=== PATIENT | male | born 1960 | race Caucasian/White ===

== ENCOUNTER 2016-06-21 03:18 | Emergency (ER) | payer OTHER ==
[2016-06-21] MEDS ORDERED: PROCAINAMIDE HCL 1,000 MG in D5W 50 ML IV ONE (03:31)
[2016-06-21] MEDS ORDERED: NS 1,000 ML IV ONE (03:31)
--- NOTE | 2016-06-21 03:42 | CPEKG ---
Heart Rate: 124 RR Interval: 484 QRSD Interval: 76 QT Interval: 340 QTC Interval: 489 QRS [place]: 1 T Wave [place]: 19 EKG Severity - ABNORMAL ECG - EKG Impression: ATRIAL FIBRILLATION EKG Impression: MULTIFORM VENTRICULAR PREMATURE COMPLEXES EKG Impression: BORDERLINE PROLONGED QT INTERVAL Electronically Signed By: Charo Hollingsworth 21-Jun-2016 07:08:52
[2016-06-21 04:10] VITALS: PULSE 76
--- NOTE | 2016-06-21 04:15 | EDPHY ---
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 He felt he could not catch his breath after his encounter with the patient and then felt palpitations. He denies any chest pain. The palpitations have been constant, moderate in severity and not improving. These feels like his prior episodes of atrial fibrillation which seem to mostly be provoked with exertion exercise. REVIEW OF SYSTEMS Constitutional: No fever, no chills. Cardiovascular: No chest pain, + palpitations. Neurological: No headache. 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 PHYSICAL General Appearance: Alert, no distress Eyes: Pupils equal and round no pallor or injection ENT, Mouth: Mucous membranes moist Respiratory: There are no retractions, lungs are clear to auscultation Cardiovascular: Fast irregularly irregular Neurological: A&O, moves all extremities Skin: Warm and dry, no rashes Musculoskeletal: Neck is supple non tender Extremities: symmetrical, full range of motion Psychiatric: Patient is oriented X 3, there is no agitation Source: Patient Exam Limitations: No limitations - Personal History Current Tetanus/Diphtheria Vaccine: Yes Current Tetanus Diphtheria and Acellular Pertussis (TDAP): Yes - Medical/Surgical History Hx Asthma: Yes Hx Chronic Respiratory Disease: No Hx Diabetes: No Hx Cardiac Disease: Yes Hx Renal Disease: No Hx Cirrhosis: No Hx Alcoholism: No Hx HIV/AIDS: No Hx Splenectomy or Spleen Trauma: No Other PMH: afib, reactive airway - Social History Smoking Status: Former smoker Constitutional: Initial Vital Signs Heart Rate 141 H 06/21/16 03:20 Respiratory Rate 16 06/21/16 03:20 Blood Pressure 134/101 H 06/21/16 03:20 O2 Sat (%) 96 06/21/16 03:20 O2 Delivery Mode Room Air Allergies/Adverse Reactions: No Known Allergies Allergy (Verified 06/21/16 03:28) Home Medications: Medication Instructions Recorded Ibuprofen [Motrin (*)] 800 mg PO Q8 PRN 05/04/14 Albuterol [Proventil Inhaler HFA 1 - 2 puffs IH Q4H PRN #1 mdi 05/08/14 (*)] Montelukast Sodium [Singulair 10 10 mg PO DAILY@1800 #30 tab 05/08/14 mg (*)] Aspirin 81mg (*) PO 10/06/15 Multivitamin 12/26/15 Medical Decision Making - Diagnostics EKG Interpretation: EKG #1: Complete interpretation has been separately recorded in the [facility] archive. Summary impression: Atrial fibrillation with rapid ventricular response EKG #2: Complete interpretation has been separately recorded in the [facility] archive. Summary impression: Normal sinus rhythm ED Course/Re-evaluation: In the emergency room, the patient was given an IV fluid bolus of normal saline for volume depletion. He was given procainamide 1 g following the [place] protocol for atrial fibrillation. He cardioverted to a normal sinus rhythm with this. Repeat EKG is unremarkable. He will be discharged from the emergency room with follow-up with Cardiology. He has previously considered an ablation but is unsure if he would like to proceed. 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 On exam, he has atrial fibrillation and EKG reveals AFib with RVR. He does not have any chest pain, shortness of breath, any other concerning symptoms for [place], pulmonary embolism, electrolyte disturbance. - Data Points Medications Given: Discontinued Medications Sodium Chloride (Ns) 1,000 mls @ 0 mls/hr IV ONCE ONE PRN Reason: Wide Open Stop: 06/21/16 03:32 Last Admin: 06/21/16 04:00 Dose: 1,000 mls Procainamide HCl 1,000 mg/ (Dextrose) 60 mls @ 120 mls/hr IV ONCE ONE Stop: 06/21/16 04:00 Last Admin: 06/21/16 03:45 Dose: 60 mls Departure - Departure Disposition: Home, Routine, Self-Care Clinical Impression: Paroxysmal atrial fibrillation with rapid ventricular response Condition: Good Instructions: A-fib (Atrial Fibrillation) (ED) Additional Instructions: Please make sure to drink plenty of fluids and take it easy over the next 1 day. You can follow up with your heating engineer this week. Return for any concerning symptoms. Referrals: Maxwell Baxter PA [Primary Care Provider] - As per Instructions
--- NOTE | 2016-06-21 04:46 | CPEKG ---
Heart Rate: 81 RR Interval: 741 P-R Interval: 156 QRSD Interval: 82 QT Interval: 404 QTC Interval: 469 P [place]: 61 QRS [place]: -12 T Wave [place]: 45 EKG Severity - NORMAL ECG - EKG Impression: SINUS RHYTHM Electronically Signed By: Charo Hollingsworth 21-Jun-2016 07:08:42
[2016-06-21 04:55] VITALS: BP 135/90; RESP 18; O2SAT 96
== END 2016-06-21 04:58 | disposition home or self-care (01) ==
DX: I48.0 Paroxysmal atrial fibrillation (principal); I10 Essential (primary) hypertension; J45.909 Unspecified asthma, uncomplicated; Z79.82 Long term (current) use of aspirin; Z87.891 Personal history of nicotine dependence
CPT/HCPCS: 96365; J2690

== ENCOUNTER 2016-08-06 22:06 | Emergency (ER) | payer OTHER ==
[2016-08-06] MEDS ORDERED: NS 1,000 ML IV ONE (22:15)
[2016-08-06 22:37] LABS: % IMMATURE GRANULYOCYTES 0.4 % (0.0-1.1); ABSOLUTE IMMATURE GRANULOCYTES 0.05 10^3/uL (0.00-0.10); ADD DIFF? NO; ADD MORPH? NO; ADD SCAN? NO; ATYPICAL LYMPHOCYTE FLAG 10 (0-99); FRAGMENT RBC FLAG 0 (0-99); HEMATOCRIT 43.6 % (40.0-51.0); HEMOGLOBIN 15.8 g/dL (13.7-17.5); LEFT SHIFT FLG 0 (0-99); LIPEMIA HEMOLYSIS FLAG 90 (0-99); MEAN CELL HEMOGLOBIN 31.4 pg (27.9-34.1); MEAN CELL HEMOGLOBIN CONCENTR. 36.2 g/dL (32.4-36.7); MEAN CELL VOLUME 86.7 fL (81.5-99.8); PLATELET CLUMPS FLAG 0 (0-99); PLATELET COUNT 298 10^3/uL (150-400); RED BLOOD CELL COUNT 5.03 10^6/uL (4.40-6.38); RED CELL DISTRIBUTION WIDTH 12.3 % (11.5-15.2)
[2016-08-06 22:38] VITALS: RESP 14
[2016-08-06 22:49] LABS: ANION GAP 19 mEq/L (8-16); CALCIUM 10.2 mg/dL (8.5-10.4); CARBON DIOXIDE 21 mEq/l (22-31); CHLORIDE 100 mEq/L (97-110); CREATININE 1.1 mg/dL (0.7-1.3); GLOMERULAR FILTRATION RATE > 60; GLUCOSE 97 mg/dL (70-100); POTASSIUM 4.1 mEq/L (3.5-5.2); SODIUM 140 mEq/L (134-144)
--- NOTE | 2016-08-06 22:52 | EDPHY ---
H & P Time Seen by Provider: 08/06/16 22:32 HPI/ROS: CHIEF COMPLAINT: Possible atrial fibrillation HISTORY OF PRESENT ILLNESS: 55-year-old male with history of paroxysmal atrial fibrillation and hypertension presents reporting that he developed acute palpitations and irregular heart rate approximately 30 minutes ago. Patient has a history of atrial fibrillation which is been converted using procainamide. He takes an aspirin every day. He is not otherwise anticoagulated. Typically is in sinus rhythm. He does have a history of hypertension and was recently started on amlodipine about a month ago. He reports 2 episodes of what he describes as atrial fibrillation since starting the amlodipine. Patient was at a softball game prior to the development of atrial fibrillation. During the game he reports feeling well. No chest pain, palpitations, shortness of breath, vomiting, or diarrhea. REVIEW OF SYSTEMS: Aside from elements discussed in the HPI, a comprehensive 10-point review of systems was reviewed and is negative. PAST MEDICAL HISTORY: Atrial fibrillation, hypertension. No known history of coronary artery disease or stents. SOCIAL HISTORY: Works at [employer]. Nonsmoker. VITAL SIGNS Reviewed by me. Heart rate 87 on the monitor. GENERAL: Well-developed, well-nourished, resting comfortably in no respiratory distress. HEENT: Atraumatic. Eyes: No icterus, no injection. Mouth: moist mucous membranes. No erythema or lesions. Neck: supple with no adenopathy. LUNGS: Clear to auscultation bilaterally, no wheezes, rhonchi or rales. CARDIAC: Regular with an occasional premature beat. ABDOMEN: Soft, nontender, nondistended, bowel sounds normal. BACK: No CVA tenderness. EXTREMITIES: No trauma. No edema. Range of motion is normal throughout. NEURO: Alert and oriented, grossly nonfocal. SKIN: Warm and slightly diaphoretic, no rash. PSYCHIATRIC: Normal mentation, no agitation. Smoking Status: Former smoker Constitutional: Initial Vital Signs Heart Rate 92 08/06/16 22:35 Respiratory Rate 14 08/06/16 22:35 Blood Pressure 127/88 H 08/06/16 22:35 O2 Sat (%) 97 08/06/16 22:35 O2 Delivery Mode Room Air Allergies/Adverse Reactions: No Known Allergies Allergy (Verified 08/06/16 22:33) Home Medications: Medication Instructions Recorded Albuterol [Proventil Inhaler HFA 1 - 2 puffs IH Q4H PRN #1 mdi 05/08/14 (*)] Montelukast Sodium [Singulair 10 10 mg PO DAILY@1800 #30 tab 05/08/14 mg (*)] Aspirin 81mg (*) PO 10/06/15 Multivitamin 12/26/15 Medical Decision Making - Diagnostics EKG Interpretation: 12-LEAD EKG: Please see the full report in [facility]. My interpretation: Sinus rhythm, multiple premature atrial complexes. ED Course/Re-evaluation: 55-year-old male with history of atrial fibrillation presents reporting that he felt palpitations and rapid heart rate earlier. 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 EKG in the emergency department demonstrates sinus rhythm with multiple PACs. Patient had a L of normal saline as well as CBC and chemistries checked. These were largely unremarkable. Patient has appointment with Dr. Cortez to follow up regarding recurrent episodes of atrial fibrillation. He is anxious to be discharged and feels well. Please see the discharge instructions. Differential Diagnosis: Differential diagnoses for the patient's sensation of palpitations was considered including but not limited to sinus tachycardia, PACs, PVCs, SVT, atrial fibrillation, atrial flutter, anxiety, panic attack. - Data Points Laboratory Results: Laboratory Results 08/06/16 22:25 08/06/16 22:25 08/06/16 08/06/16 22:25 22:25 WBC 11.45 10^3/uL H 10^3/uL (3.80-9.50) RBC 5.03 10^6/uL 10^6/uL (4.40-6.38) Hgb 15.8 g/dL g/dL (13.7-17.5) Hct 43.6 % % (40.0-51.0) MCV 86.7 fL fL (81.5-99.8) MCH 31.4 pg pg (27.9-34.1) MCHC 36.2 g/dL g/dL (32.4-36.7) RDW 12.3 % % (11.5-15.2) Plt Count 298 10^3/uL 10^3/uL (150-400) MPV 9.0 fL fL (8.7-11.7) Neut % (Auto) 62.5 % % (39.3-74.2) Lymph % (Auto) 29.0 % % (15.0-45.0) [place] % (Auto) 7.2 % % (4.5-13.0) Eos % (Auto) 0.5 % L % (0.6-7.6) Baso % (Auto) 0.4 % % (0.3-1.7) Nucleat RBC Rel Count 0.0 % % (0.0-0.2) Absolute Neuts (auto) 7.14 10^3/uL H 10^3/uL (1.70-6.50) Absolute Lymphs (auto) 3.32 10^3/uL H 10^3/uL (1.00-3.00) Absolute Monos (auto) 0.83 10^3/uL H 10^3/uL (0.30-0.80) Absolute Eos (auto) 0.06 10^3/uL 10^3/uL (0.03-0.40) Absolute Basos (auto) 0.05 10^3/uL 10^3/uL (0.02-0.10) Absolute Nucleated RBC 0.00 10^3/uL 10^3/uL (0-0.01) Immature Gran % 0.4 % % (0.0-1.1) Immature Gran # 0.05 10^3/uL 10^3/uL (0.00-0.10) Sodium 140 mEq/L mEq/L (134-144) Potassium 4.1 mEq/L mEq/L (3.5-5.2) Chloride 100 mEq/L mEq/L (97-110) Carbon Dioxide 21 mEq/l L mEq/l (22-31) Anion Gap 19 mEq/L H mEq/L (8-16) BUN 18 mg/dL mg/dL (7-23) Creatinine 1.1 mg/dL mg/dL (0.7-1.3) Estimated GFR > 60 Glucose 97 mg/dL mg/dL (70-100) Calcium 10.2 mg/dL mg/dL (8.5-10.4) Departure - Departure Disposition: Home, Routine, Self-Care Clinical Impression: Palpitations Condition: Good Instructions: Palpitations (ED) Additional Instructions: Please follow up with Dr. Cortez. Drink plenty of fluids and get plenty of rest. Avoid dehydration, overheating, or significant exertion. Return to the emergency department or follow up as needed if your symptoms of palpitations recur. Referrals: NONE *PRIMARY CARE P,. [Primary Care Provider] - As per Instructions Christopher Cortez MD [Medical Doctor] - As per Instructions (Follow-up as scheduled. )
--- NOTE | 2016-08-06 23:44 | CPEKG ---
Heart Rate: 87 RR Interval: 690 P-R Interval: 152 QRSD Interval: 82 QT Interval: 352 QTC Interval: 424 P [place]: 59 QRS [place]: -4 T Wave [place]: 34 EKG Severity - ABNORMAL ECG - EKG Impression: SINUS RHYTHM EKG Impression: MULTIPLE ATRIAL PREMATURE COMPLEXES EKG Impression: PROBABLE LEFT ATRIAL ABNORMALITY Electronically Signed By: Paz Platt 06-Aug-2016 23:44:23
[2016-08-07 00:41] VITALS: BP 119/77; PULSE 76; O2SAT 96
== END 2016-08-06 23:32 | disposition home or self-care (01) ==
LOC: CED 22:06
DX: R00.2 Palpitations (principal); I10 Essential (primary) hypertension; Z79.82 Long term (current) use of aspirin; Z87.891 Personal history of nicotine dependence
CPT/HCPCS: 80048-PO; 85025-PO

== ENCOUNTER 2016-10-16 05:32 | Observation (INO) | payer OTHER ==
--- NOTE | 2016-10-16 05:37 | CPEKG ---
Heart Rate: 83 RR Interval: 723 P-R Interval: 196 QRSD Interval: 88 QT Interval: 364 QTC Interval: 428 P [place]: 73 QRS [place]: 4 T Wave [place]: 53 EKG Severity - ABNORMAL ECG - EKG Impression: SINUS RHYTHM EKG Impression: ABERRANT COMPLEX, POSSIBLY SUPRAVENTRICULAR Electronically Signed By: Charo Hollingsworth 16-Oct-2016 06:25:33
[2016-10-16] MEDS ORDERED: NS 1,000 ML IV ONE (05:41)
--- NOTE | 2016-10-16 05:57 | EDPHY ---
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 These feels like a fluttering in his chest and are worse upon exertion, improved at rest. He felt them come on at about 1:00 a.m. 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 When he rests, his symptoms improved, however when he walks around the become worse. He was recently evaluated by Dr. Cobb and has started on propafenone 225 mg twice daily and diltiazem, dose unknown. He has felt better since starting these medications until the last 2 days. REVIEW OF SYSTEMS Constitutional: No fever, no chills. Eyes: No discharge. ENT: No sore throat. Cardiovascular: No chest pain, no palpitations. Respiratory: No cough, no shortness of breath. Gastrointestinal: No abdominal pain, no vomiting. Genitourinary: No hematuria. Musculoskeletal: No back pain. Skin: No rashes. Neurological: No headache. PMHx: Paroxysmal atrial fibrillation Soc Hx: Works at [employer] PHYSICAL General Appearance: Alert, no distress Eyes: Pupils equal and round no pallor or injection ENT, Mouth: Mucous membranes moist Respiratory: There are no retractions, lungs are clear to auscultation Cardiovascular: Regular rate and rhythm Gastrointestinal: Abdomen is soft and non-tender, no masses, bowel sounds normal Neurological: A&O, moves all extremities Skin: Warm and dry, no rashes Musculoskeletal: Neck is supple non tender Extremities: symmetrical, full range of motion Psychiatric: Patient is oriented X 3, there is no agitation Source: Patient Exam Limitations: No limitations - Personal History Current Tetanus/Diphtheria Vaccine: Yes Current Tetanus Diphtheria and Acellular Pertussis (TDAP): Yes - Medical/Surgical History Hx Asthma: Yes Hx Chronic Respiratory Disease: No Hx Diabetes: No Hx Cardiac Disease: Yes Hx Renal Disease: No Hx Cirrhosis: No Hx Alcoholism: No Hx HIV/AIDS: No Hx Splenectomy or Spleen Trauma: No Other PMH: afib, reactive airway - Social History Smoking Status: Former smoker Constitutional: Initial Vital Signs Temperature (C) 36.7 C 10/16/16 05:37 Heart Rate 141 H 10/16/16 05:37 Respiratory Rate 16 10/16/16 05:37 Blood Pressure 148/91 H 10/16/16 05:37 O2 Sat (%) 94 10/16/16 05:37 O2 Delivery Mode Room Air Allergies/Adverse Reactions: No Known Allergies Allergy (Verified 10/16/16 05:35) Home Medications: Medication Instructions Recorded Albuterol [Proventil Inhaler HFA 1 - 2 puffs IH Q4H PRN #1 mdi 05/08/14 (*)] Montelukast Sodium [Singulair 10 10 mg PO DAILY@1800 #30 tab 05/08/14 mg (*)] Aspirin 81mg (*) PO 10/06/15 Multivitamin 12/26/15 Rythmol Sr 10/16/16 Medical Decision Making - Diagnostics EKG Interpretation: EKG: Complete interpretation has been separately recorded in the [email or web address] archive. Summary impression: Sinus rhythm with PVCs Differential Diagnosis: This is a 48-year-old man with paroxysmal atrial fibrillation, reactive airways disease who presents with palpitations which have been intermittent over the last 2 days, worse upon exertion. He was recently evaluated by Dr. Cobb of Cardiology and has started on propafenone and diltiazem. He has been feeling well up until the last 2 days. Differential diagnosis includes paroxysmal atrial fibrillation, other arrhythmia such as SVT, electrolyte disturbance, ACS. In the emergency department, the patient was placed on a personnel monitor, initial heart rate was in the 140s, however improved to the 70s without any intervention. EKG was obtained which demonstrated multiple premature ventricular and supraventricular complexes. Basic labs were all unremarkable. I consulted with the director plans system consultant Dr. Cotter. He recommends treadmill stress testing to further evaluate the patient's rhythm. I plan to admit the patient for observation for this test. I have ordered him a hospital bed. - Data Points Laboratory Results: Laboratory Results 10/16/16 05:34 10/16/16 05:34 10/16/16 10/16/16 05:34 05:34 WBC 10.88 10^3/uL H 10^3/uL (3.80-9.50) RBC 3.72 10^6/uL L 10^6/uL (4.40-6.38) Hgb 12.1 g/dL L g/dL (13.7-17.5) Hct 35.3 % L % (40.0-51.0) MCV 94.9 fL fL (81.5-99.8) MCH 32.5 pg pg (27.9-34.1) MCHC 34.3 g/dL g/dL (32.4-36.7) RDW 15.5 % H % (11.5-15.2) Plt Count 291 10^3/uL 10^3/uL (150-400) MPV 9.3 fL fL (8.7-11.7) Neut % (Auto) 41.4 % % (39.3-74.2) Lymph % (Auto) 43.8 % % (15.0-45.0) [place] % (Auto) 9.0 % % (4.5-13.0) Eos % (Auto) 4.4 % % (0.6-7.6) Baso % (Auto) 0.9 % % (0.3-1.7) Nucleat RBC Rel Count 0.0 % % (0.0-0.2) Absolute Neuts (auto) 4.50 10^3/uL 10^3/uL (1.70-6.50) Absolute Lymphs (auto) 4.77 10^3/uL H 10^3/uL (1.00-3.00) Absolute Monos (auto) 0.98 10^3/uL H 10^3/uL (0.30-0.80) Absolute Eos (auto) 0.48 10^3/uL H 10^3/uL (0.03-0.40) Absolute Basos (auto) 0.10 10^3/uL 10^3/uL (0.02-0.10) Absolute Nucleated RBC 0.00 10^3/uL 10^3/uL (0-0.01) Immature Gran % 0.5 % % (0.0-1.1) Immature Gran # 0.05 10^3/uL 10^3/uL (0.00-0.10) Sodium 143 mEq/L mEq/L (134-144) Potassium 3.9 mEq/L mEq/L (3.5-5.2) Chloride 109 mEq/L mEq/L (97-110) Carbon Dioxide 20 mEq/l L mEq/l (22-31) Anion Gap 14 mEq/L mEq/L (8-16) BUN 21 mg/dL mg/dL (7-23) Creatinine 1.3 mg/dL mg/dL (0.7-1.3) Estimated GFR 57 Glucose 99 mg/dL mg/dL (70-100) Calcium 9.1 mg/dL mg/dL (8.5-10.4) Troponin I Pending Medications Given: Discontinued Medications Sodium Chloride (Ns) 1,000 mls @ 0 mls/hr IV EDNOW ONE; Wide Open PRN Reason: Protocol Stop: 10/16/16 05:42 Last Admin: 10/16/16 05:56 Dose: 1,000 mls Departure - Departure Disposition: [facility] Inpatient Acute Clinical Impression: Atrial fibrillation Qualifiers: Atrial fibrillation type: paroxysmal Qualified Code(s): I48.0 - Paroxysmal atrial fibrillation Condition: Fair
[2016-10-16 06:06] LABS: % IMMATURE GRANULYOCYTES 0.5 % (0.0-1.1); ABSOLUTE IMMATURE GRANULOCYTES 0.05 10^3/uL (0.00-0.10); ADD DIFF? NO; ADD MORPH? NO; ADD SCAN? NO; ATYPICAL LYMPHOCYTE FLAG 10 (0-99); FRAGMENT RBC FLAG 0 (0-99); HEMATOCRIT 35.3 % (40.0-51.0); HEMOGLOBIN 12.1 g/dL (13.7-17.5); LEFT SHIFT FLG 0 (0-99); LIPEMIA HEMOLYSIS FLAG 90 (0-99); MEAN CELL HEMOGLOBIN 32.5 pg (27.9-34.1); MEAN CELL HEMOGLOBIN CONCENTR. 34.3 g/dL (32.4-36.7); MEAN CELL VOLUME 94.9 fL (81.5-99.8); MEAN PLATELET VOLUME 9.3 fL (8.7-11.7); PLATELET CLUMPS FLAG 0 (0-99); PLATELET COUNT 291 10^3/uL (150-400); RED BLOOD CELL COUNT 3.72 10^6/uL (4.40-6.38); RED CELL DISTRIBUTION WIDTH 15.5 % (11.5-15.2)
[2016-10-16 06:12] LABS: ANION GAP 14 mEq/L (8-16); CALCIUM 9.1 mg/dL (8.5-10.4); CARBON DIOXIDE 20 mEq/l (22-31); CHLORIDE 109 mEq/L (97-110); CREATININE 1.3 mg/dL (0.7-1.3); GLOMERULAR FILTRATION RATE 57; GLUCOSE 99 mg/dL (70-100); POTASSIUM 3.9 mEq/L (3.5-5.2); SODIUM 143 mEq/L (134-144)
[2016-10-16 06:24] LABS: TROPONIN I 0.022 ng/mL (0.000-0.034)
[2016-10-16 06:43] VITALS: RESP 18; O2SAT 92
[2016-10-16 06:58] VITALS: BP 158/98; PULSE 91; TEMP 97.8
--- NOTE | 2016-10-16 10:49 | SOAPPROG ---
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 Paroxysmal afib early this am that converted to NSR prior to arrival to ED. He has maintained NSR. He is currently on Rythmol 225 mg bid along with diltiazem for rhythm control. 2. Mildly abnormal ETT. 3. Isolated PACs and PVCs. 4. HTN, suboptimally controlled. Plan: D/w Drs. Moseley and Vahe 1. Increase Rythmol to 325 mg po bid. In the interim the patient will take 225 mg tid until he is able to attain his Rx. 2. Continue current doses of diltiazem and aspirin. 3. 12 lead EKG early next week to check QTc. 4. Follow up with Dr. Cobb at soonest convenience to discuss ablation therapy. 10/16/16 10:45 Objective: Vital Signs Temp Pulse Resp BP Pulse Ox 36.6 C 91 18 158/98 H 92 10/16/16 06:55 10/16/16 06:55 10/16/16 06:55 10/16/16 06:55 10/16/16 06:55 10/15/16 10/16/16 10/17/16 05:59 05:59 05:59 Intake Total 1000 Balance 1000 Physical Exam - Physical Exam General Appearance: WD/WN, alert, no apparent distress Respiratory: chest non-tender, lungs clear, normal breath sounds Cardiac/Chest: normal peripheral pulses, regular rate, rhythm Neuro/Psych: no motor/sensory deficits, alert, normal mood/affect, oriented x 3 ICD10 Worksheet Patient Problems: Problems Problem Status Onset Hypoxia Acute Atrial fibrillation Acute
--- NOTE | 2016-10-16 10:56 | CPR ---
[f rep st] NONINVASIVE CARDIAC PROCEDURE REPORT DATE OF PROCEDURE: 10/16/2016 PROCEDURE: Regular exercise stress test. INDICATION FOR PROCEDURE: A 56-year-old male, with history of atrial fibrillation who presented to the emergency department early this morning with subjective account of stuttering bouts of recurrent atrial fibrillation. He is normally followed by Dr. Calderon Cobb and was recently placed on propafenone 225 mg twice daily along with diltiazem for control of his arrhythmia. He presented to the hospital this morning in normal sinus rhythm. Treadmill testing was ordered by Dr. Cotter for further evaluation. DESCRIPTION OF PROCEDURE: Baseline heart rate, blood pressure, and 12-lead EKG were performed in the supine position. The patient underwent 9 minutes of standard Denny protocol with intermittent blood pressure monitoring every 2 minutes and continuous EKG and pulse oximetry. He was observed for 5 minutes in recovery. FINDINGS: Baseline heart rate is 62 beats per minute. Baseline blood pressure 134/82 mmHg. Baseline EKG shows normal sinus rhythm at 62 beats per minute with a single premature atrial contraction. Corrected QT interval is 426 milliseconds. Blood pressure and heart rate increased linearly with increasing stages of exercise. There were occasional premature atrial contractions. Peak heart rate was 144 beats per minute meeting 89% of age predicted maximum heart rate. Peak blood pressure was 180/80 mmHg. Patient denied any chest discomfort on the treadmill. There was no recurrent atrial fibrillation. There was approximately [address]-segment depression in V5 and V6 at peak exercise that resolved by 4 minutes of recovery. Following cessation of the test, heart rate and blood pressure decreased in a linear fashion and were 87 beats per minute and 150/90 mmHg respectively at the end of the test. IMPRESSION: 1. Mildly abnormal stress test. 2. Paroxysmal atrial fibrillation. 3. Hypertension. PLAN: (Discussed with Doctors Frederick Moseley and Petey Cotter). 1. Increase propafenone to 325 mg twice daily. 2. Continue current doses of diltiazem and aspirin. 3. Okay to discharge home. Arrange for 12-lead EKG early this upcoming week for check of corrected QT interval. He will also need follow up with Dr. Calderon Cobb to further discuss ablation therapy. /[id number]/[id number] MTDD
[2016-10-16] MEDS ORDERED: PROPAFENONE HCL SR 325 MG CAP PO SCH (11:15)
--- NOTE | 2016-10-16 11:41 | GCON ---
[f rep st] CONSULTATION CARDIAC CONSULTATION DATE OF CONSULTATION: 10/16/2016 CHIEF COMPLAINT: Atrial fibrillation. HISTORY OF PRESENT ILLNESS: The patient is a 54-etqg-uil gentleman who has had a 5-6 year history of paroxysmal atrial fibrillation requiring DC cardioversion and chemical cardioversions. He was seen on 09/[address] Cobb to discuss management. He apparently has been started on rhythm con trol with propafenone SR 225 mg p.o. twice daily. His blood pressure, which he is now on chlorthali done and irbesartan and he also takes 180 mg of Cardizem. 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 This was new. Apparently t he medications have been working for about a week. He came to the emergency room where he was in at [facility]. We converted. Overnight he has had 1 short bout of atrial fibrillation. He is a CHAD1 on aspirin. He is feeling well at this time. He was to have an exercise stress test which will be scheduled for this morning. I discussed with him our options at this point. If his stress test appears to be normal, I will probably increase his Rythmol from 225 mg twice daily to 325 mg p. o. twice daily, and he can follow up in our office with an EKG on Tuesday or Tuesday of next week. H is QT is 407 at this time. He is having no side affects. He denies syncope. He denies any ACS sym ptomatology. PAST HISTORY: Significant for hypertension and other orthopedic issues. MEDICATIONS: Include chlorthalidone 25 mg a day, irbesartan 300 mg daily, Cardizem 180 mg p.o. apryl y. He is on Advair Diskus and rescue inhalers. ALLERGIES: No known allergies. FAMILY HISTORY: Noncontributory. SOCIAL HISTORY: Was a former smoker. REVIEW OF SYSTEMS: Negative in a 10-point system other than what was mentioned in the HPI. PHYSICAL EXAMINATION: VITAL SIGNS: Blood pressure is 150/98. HEENT: Mouth, oropharynx was moist. BACK: CVA and chest wall without palpable tenderness. SKIN: Clear. LUNGS: Clear to auscultati on. CARDIOVASCULAR: Regular rate and rhythm without murmur, gallop, rub. ABDOMEN: Soft, nontende r. MUSCULOSKELETAL: Showed no sinus clubbing or edema. Pulses are 2+ and symmetrical. LABORATORY DATA: White count 10, hemoglobin 12, potassium 3.9, troponin negative. EKG normal sinus rhythm with PACs. No ischemic changes. QT was 364. ASSESSMENT: 1. Paroxysmal atrial fibrillation with breakthrough on recent medicines. He had no syncope. This is a chronic situation and is being followed by Dr. Cobb. At this point, will perform an exercise st ress test. Afterward if this appears to be normal and there are no exercise induced issues, we will increase his Rythmol 325 mg p.o. twice daily and discharge home on all his other current medication s. Patient will follow in our office with an EKG, and conversation with Dr. Cobb next week to discus s further options. He is not having prolonged atrial fibrillation, at least last night was short-li pat and self terminated. 2. Hypertension. Patient will continue on antihypertensive medications as needed. 3. Former history of smoking. 4. History of GI bleed but no active GI bleed at this time. 5. Patient had questions answered. Further care depending on his clinical course. /[id number]/MODL
== END 2016-10-16 12:25 | disposition home or self-care (01) ==
LOC: F2W 06:48
PROVIDERS: ADMIT Internal Medicine Interventional Cardiology; ATTEND Internal Medicine Interventional Cardiology
DX: I48.0 Paroxysmal atrial fibrillation (principal); I10 Essential (primary) hypertension
CPT/HCPCS: 93005; 93017; G0378

== ENCOUNTER 2016-11-04 15:52 | Emergency (ER) | payer OTHER ==
[2016-11-04 15:57] VITALS: RESP 20; TEMP 97.9
--- NOTE | 2016-11-04 16:35 | CPEKG ---
Heart Rate: 74 RR Interval: 811 P-R Interval: 144 QRSD Interval: 76 QT Interval: 364 QTC Interval: 404 P [place]: 54 QRS [place]: -5 T Wave [place]: 19 EKG Severity - BORDERLINE ECG - EKG Impression: SINUS RHYTHM EKG Impression: PROBABLE LEFT ATRIAL ABNORMALITY Electronically Signed By: Tayo Soria 04-Nov-2016 16:38:31
--- NOTE | 2016-11-04 16:37 | EDPHY ---
H & P Stated Complaint: Dizziness, heart arrythmia. Started at 1pm. 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 He has a history of atrial fibrillation. He is on diltiazem daily. He complains today of significant lightheadedness associated with only minimal exertion. Even lifting his laundry basket or holding his breath for about 5 seconds. He has paroxysmal tachycardia up to the 150s but states that this is not unusual for him. His heart rate is currently at 80 any states that this is high for him. He is not on anticoagulants. No headache. No vertigo. No chest pain. No shortness of breath. No leg swelling. REVIEW OF SYSTEMS: Constitutional: denies: chills, fever, recent illness, recent injury EENTM: denies: blurred vision, double vision, nose congestion Respiratory: denies: cough, shortness of breath Cardiac: See HPI Gastrointestinal/Abdominal: denies: abdominal pain, diarrhea, nausea, vomiting, blood streaked stools Genitourinary: denies: dysuria, frequency, hematuria, pain Musculoskeletal: denies: joint pain, muscle pain Skin: denies: lesions, rash, jaundice, bruising Neurological: denies: headache, numbness, paresthesia, tingling, dizziness, weakness Hematologic/Lymphatic: denies: blood clots, easy bleeding, easy bruising Immunologic/allergic: denies: HIV/AIDS, transplant EXAM: GENERAL: Well-appearing, well-nourished and in no acute distress. HEAD: Atraumatic, normocephalic. EYES: No nystagmus, Pupils equal round and reactive to light, extraocular movements intact, sclera anicteric, conjunctiva are normal. ENT: TMs normal, nares patent, oropharynx clear without exudates. Moist mucous membranes. NECK: Normal range of motion, supple without lymphadenopathy or JVD. LUNGS: Breath sounds clear to auscultation bilaterally and equal. No wheezes rales or rhonchi. HEART: Regular rate and rhythm without murmurs, rubs or gallops. ABDOMEN: Soft, nontender, normoactive bowel sounds. No guarding, no rebound. No masses appreciated. BACK: No CVA tenderness, no spinal tenderness, step-offs or deformities EXTREMITIES: Normal range of motion, no pitting or edema. No clubbing or cyanosis. NEUROLOGICAL: Cranial nerves II through XII grossly intact. Normal speech, normal gait. 5/5 strength, normal movement in all extremities, normal sensation , normal cerebellar exam PSYCH: Normal mood, normal affect. SKIN: Warm, dry, normal turgor, no visible rashes or lesions. Source: Patient Exam Limitations: Clinical condition - Personal History Current Tetanus Diphtheria and Acellular Pertussis (TDAP): Yes - Medical/Surgical History Hx Asthma: Yes Hx Chronic Respiratory Disease: No Hx Diabetes: No Hx Cardiac Disease: Yes Hx Renal Disease: No Hx Cirrhosis: No Hx Alcoholism: No Hx HIV/AIDS: No Hx Splenectomy or Spleen Trauma: No Other PMH: afib, reactive airway, 3 knee surgeries - Family History Significant Family History: No pertinent family hx - Social History Smoking Status: Former smoker Alcohol Use: Sober Drug Use: None Constitutional: Initial Vital Signs Temperature (C) 36.6 C 11/04/16 15:54 Heart Rate 90 11/04/16 15:54 Respiratory Rate 20 11/04/16 15:54 Blood Pressure 132/89 H 11/04/16 15:54 O2 Sat (%) 93 11/04/16 15:54 O2 Delivery Mode Room Air Allergies/Adverse Reactions: No Known Allergies Allergy (Verified 10/16/16 05:35) Home Medications: Medication Instructions Recorded Albuterol Sulfate [Proair Hfa] 1 - 2 puffs IH Q4-6PRN PRN 10/16/16 Aspirin [Aspirin 325 mg (*)] 325 mg PO DAILY 10/16/16 Diltiazem Cd [Cardizem ER Q24hr] 180 mg PO DAILY 10/16/16 Fluticasone/Salmeter 250/50Mcg 1 puffs IH BID PRN 10/16/16 [Advair 250/50 (*)] Montelukast Sodium [Singulair 10 10 mg PO DAILY@1800 10/16/16 mg (*)] Multivitamins [Multivitamin (*)] 1 each PO DAILY 10/16/16 Triazolam [Halcion 0.25MG (*)] 0.25 mg PO HS PRN 10/16/16 Medical Decision Making - Diagnostics EKG Interpretation: An EKG obtained and was read and documented in trace view. Please see trace view for full reading and report. Sinus rhythm, no acute ischemic changes ED Course/Re-evaluation: 5:30 p.m. the patient is asymptomatic. We discussed his lab results which are reassuring. His orthostatic vital signs were normal. He has not been symptomatic since arriving. He wishes to go home. I did offer admission for carotid studies and monitoring. He declines and will arrange this as an outpatient. He was road tested and was asymptomatic. Differential Diagnosis: Partial list of the Differential diagnosis considered include but were not limited to; lightheadedness, arrhythmia and although unlikely based on the history and physical exam, I also considered acute coronary disease, PE, hypotension, dehydration. I discussed these differential diagnoses and the plan with the patient as well as the usual and expected course. The patient understands that the diagnosis is provisional and that in medicine we are not always correct and that further workup is often warranted. Usual and customary warnings were given. All of the patient's questions were answered. The patient was instructed to return to the emergency department should the symptoms at all worsen or return, otherwise to followup with the physician as we discussed. - Data Points Laboratory Results: Laboratory Results 11/04/16 16:34 11/04/16 16:34 Departure - Departure Disposition: Home, Routine, Self-Care Clinical Impression: Pre-syncope Condition: Fair Instructions: Near Syncope (ED) Referrals: [facility] [Other] - 1-2 days without fail
[2016-11-04 16:44] VITALS: PULSE 72
[2016-11-04 16:51] LABS: % IMMATURE GRANULYOCYTES 0.3 % (0.0-1.1); ABSOLUTE IMMATURE GRANULOCYTES 0.02 10^3/uL (0.00-0.10); ADD DIFF? NO; ADD MORPH? NO; ADD SCAN? NO; ATYPICAL LYMPHOCYTE FLAG 10 (0-99); FRAGMENT RBC FLAG 0 (0-99); HEMATOCRIT 42.2 % (40.0-51.0); HEMOGLOBIN 14.5 g/dL (13.7-17.5); LEFT SHIFT FLG 0 (0-99); LIPEMIA HEMOLYSIS FLAG 90 (0-99); MEAN CELL HEMOGLOBIN 31.7 pg (27.9-34.1); MEAN CELL HEMOGLOBIN CONCENTR. 34.4 g/dL (32.4-36.7); MEAN CELL VOLUME 92.3 fL (81.5-99.8); PLATELET CLUMPS FLAG 10 (0-99); PLATELET COUNT 262 10^3/uL (150-400); RED BLOOD CELL COUNT 4.57 10^6/uL (4.40-6.38); RED CELL DISTRIBUTION WIDTH 12.6 % (11.5-15.2)
[2016-11-04 17:05] LABS: INR 1.11 (0.83-1.16); PROTIME(PATIENT) 14.2 SEC (12.0-15.0)
[2016-11-04 17:06] LABS: ANION GAP 14 mEq/L (8-16); APTT 28.6 SEC (23.0-38.0); CARBON DIOXIDE 21 mEq/l (22-31); CHLORIDE 103 mEq/L (97-110); CREATININE 1.1 mg/dL (0.7-1.3); GLOMERULAR FILTRATION RATE > 60; GLUCOSE 91 mg/dL (70-100); SODIUM 138 mEq/L (134-144)
[2016-11-04 17:17] LABS: TROPONIN I < 0.012 ng/mL (0.000-0.034)
[2016-11-04 17:45] VITALS: BP 131/80; O2SAT 95
== END 2016-11-04 17:45 | disposition home or self-care (01) ==
DX: R55 Syncope and collapse (principal); J45.909 Unspecified asthma, uncomplicated; Z79.82 Long term (current) use of aspirin; Z87.891 Personal history of nicotine dependence

== ENCOUNTER → 2016-12-19 | Outpatient (CLI) | payer OTHER ==
[~2016-12-19] MED LIST: IOPAMIDOL (ISOVUE 370) 100 ML BTL IV ONE
== END ==
LOC: FIMAGING 22:43
PROVIDERS: ATTEND Internal Medicine Cardiovascular Disease
DX: I48.91 Unspecified atrial fibrillation (principal)
CPT/HCPCS: Q9967

== ENCOUNTER 2016-12-28 10:41 | Day surgery (SDC) | payer OTHER ==
[2016-12-28] MEDS ORDERED: NS 1,000 ML IV ONE (10:45)
--- NOTE | 2016-12-28 11:05 | CPEKG ---
Heart Rate: 65 RR Interval: 923 P-R Interval: 152 QRSD Interval: 80 QT Interval: 412 QTC Interval: 429 P [place]: 56 QRS [place]: 6 T Wave [place]: 21 EKG Severity - NORMAL ECG - EKG Impression: SINUS RHYTHM Electronically Signed By: Jorge Medrano 28-Dec-2016 15:40:29
[2016-12-28 11:23] LABS: PLATELET COUNT 231 10^3/uL (150-400)
[2016-12-28] MEDS ORDERED: MIDAZOLAM 2 MG/2 ML VIAL IVP ONE (11:35)
--- NOTE | 2016-12-28 11:35 | PDANEPAE ---
ANE History of Present Illness ep ANE Past Medical History - Cardiovascular History Hx Hypertension: No Hx Arrhythmias: Yes Hx Chest Pain: No Hx Coronary Artery / Peripheral Vascular Disease: No Hx CHF / Valvular Disease: No Hx Palpitations: No Cardiovascular History Comment: ATRIAL FIB - CARDIOVERSION X 2 LAST 2010 NO EPISODES SINCE - Pulmonary History Hx COPD: No Hx Asthma/Reactive Airway Disease: Yes Hx Recent Upper Respiratory Infection: No Hx Oxygen in Use at Home: No Hx Sleep Apnea: No Pulmonary History Comment: EXERCISE INDUCED AND ENVIRONMENTAL. PNEUMONIA 04/2014 - Neurologic History Hx Cerebrovascular Accident: No Hx Seizures: No Hx Dementia: No - Endocrine History Hx Diabetes: No - Renal History Hx Renal Disorders: No - Liver History Hx Hepatic Disorders: No - Neurological & Psychiatric Hx Hx Neurological and Psychiatric Disorders: No - Cancer History Hx Cancer: No - Congenital Disorder History Hx Congenital Disorders: No - GI History Hx Gastrointestinal Disorders: No - Other Health History Other Health History: INSOMNIA. ALLERGIC RHINITIS - Chronic Pain History Chronic Pain: Yes (LT KNEE) - Surgical History Prior Surgeries: RT KNEE SCOPE 12/2014. L KNEE SCOPE. TONSILLECTOMY ANE Review of Systems Review of Systems: - Exercise capacity METS (RN): 4 METS ANE Patient History - Allergies Allergies/Adverse Reactions: No Known Allergies Allergy (Verified 10/16/16 05:35) - Home Medications Home Medications: Albuterol Sulfate [Proair Hfa] 1 - 2 puffs IH Q4-6PRN PRN 10/16/16 [Last Taken Unknown] Diltiazem Cd [Cardizem ER Q24hr] 180 mg PO DAILY 10/16/16 [Last Taken 10/15/16] Fluticasone/Salmeter 250/50Mcg [Advair 250/50 (*)] 1 puffs IH BID PRN 10/16/16 [ Last Taken Unknown] Montelukast Sodium [Singulair 10 mg (*)] 10 mg PO DAILY@1800 10/16/16 [Last Taken 10/15/16] Multivitamins [Multivitamin (*)] 1 each PO DAILY 10/16/16 [Last Taken 10/15/16] Triazolam [Halcion 0.25MG (*)] 0.25 mg PO HS PRN 10/16/16 [Last Taken 10/15/16] Apixaban [Eliquis] 5 mg PO BID 12/21/16 [Last Taken Unknown] Chlorthalidone [Chlorthalidone 25 mg (*)] 25 mg PO DAILY 12/21/16 [Last Taken Unknown] Irbesartan [Avapro] 300 mg PO DAILY 12/21/16 [Last Taken Unknown] Omeprazole [Prilosec 20 mg] 20 mg PO BID 12/21/16 [Last Taken Unknown] - Anes Hx Anes Hx: no prior problems - Smoking Hx Smoking Status: Former smoker - Family Anes Hx Family Hx Anesthesia Complications: NEG ANE Labs/Vital Signs - Labs Result Diagrams: 12/28/16 11:15 12/28/16 11:15 - Vital Signs Height: 177.8 cm Weight: 90.265 kg ANE Physical Exam - Airway Mallampati Score: Class 2 Mouth exam: normal dental/mouth exam - Pulmonary Pulmonary: no respiratory distress - Cardiovascular Cardiovascular: irregularly irregular - ASA Status ASA Status: II ANE Anesthesia Plan Anesthesia Plan: general endotracheal anesthesia
[2016-12-28 11:38] LABS: INR 1.14 (0.83-1.16); PROTIME(PATIENT) 14.5 SEC (12.0-15.0)
[2016-12-28] MEDS ORDERED: BUPIVACAINE 0.5% 30 ML SDV ONE (11:38)
[2016-12-28] MEDS ORDERED: HEPARIN 10,000 UNIT/10 ML MDV ONE (11:38)
[2016-12-28] MEDS ORDERED: LIDOCAINE 1% 300 MG/30 ML SDV ONE (11:38)
[2016-12-28] MEDS ORDERED: LIDOCAINE 2% 5 ML SDV ONE (11:39)
[2016-12-28] MEDS ORDERED: IOPAMIDOL (ISOVUE-300) 100 ML BTL ONE (11:39)
[2016-12-28] MEDS ORDERED: ROCURONIUM 50 MG/5 ML VIAL ONE (11:39)
[2016-12-28] MEDS ORDERED: DEXAMETHASONE 4 MG/ML VIAL ONE (11:39)
[2016-12-28] MEDS ORDERED: PROPOFOL 200 MG/20 ML VIAL ONE (11:40)
[2016-12-28] MEDS ORDERED: fentaNYL 100 MCG/2 ML INJ ONE (11:40)
[2016-12-28] MEDS ORDERED: HEPARIN/DEXTROSE 25,000 UNIT/500 ML BAG ONE (11:45)
--- NOTE | 2016-12-28 11:56 | PDGENHP ---
History & Physical Chief Complaint: symptomatic AFIB History of Present Illness: AFIB Pertinent Past, Social, Family History: HTN Relevant Physical Exam: s1s2 rrr. cta. ao x 3 Cardiorespiratory Assessment: Symptomatic AFIB. For CB PVI
[2016-12-28 12:00] VITALS: BP 99/69; RESP 14; O2SAT 94
[2016-12-28] MEDS ORDERED: PHENYLEPHRINE 10 MG/ML SDV ONE (12:29)
[2016-12-28] MEDS ORDERED: SUGAMMADEX SODIUM 200 MG/2 ML VIAL IVP ONE ×2 (12:39→12:42)
[2016-12-28] MEDS ORDERED: ONDANSETRON 4 MG/2 ML VIAL IVP PRN (13:05)
[2016-12-28] MEDS ORDERED: NALOXONE HCL 0.4 MG/ML INJ IVP PRN (13:05)
[2016-12-28] MEDS ORDERED: ALBUTEROL 3 ML DEYVIAL IH PRN (13:05)
--- NOTE | 2016-12-28 13:06 | POSTANESTH ---
Post Anesthetic Evaluation Cardiovascular Status: Normal, Stable Respiratory Status: Normal, Stable Level of Consciousness/Mental Status: Can Participate in Eval Pain Control: Adequate, Prn Tx Ordered Nausea/Vomiting Control: Adequate, Prn Tx Ordered Complications Possibly Related to Anesthesia: None Noted
[2016-12-28] MEDS ORDERED: ASPIRIN 81 MG CHEWABLE TAB PO ONE (13:30)
[2016-12-28] MEDS ORDERED: APIXABAN 5 MG TAB PO ONE (13:30)
== END 2016-12-28 15:45 | disposition home or self-care (01) ==
LOC: FCATH 10:41
PROVIDERS: ATTEND Internal Medicine Cardiovascular Disease
PROC: B245ZZ4 Ultrasonography of Left Heart, Transesophageal (ICD-10-PCS; principal; 2016-12-28)
DX: I48.91 Unspecified atrial fibrillation (principal); J45.909 Unspecified asthma, uncomplicated; I10 Essential (primary) hypertension; Z87.891 Personal history of nicotine dependence; Z79.01 Long term (current) use of anticoagulants; Z53.09 Procedure and treatment not carried out because of other contraindication
CPT/HCPCS: J1100; J1644; J2250; J2370; J2704; J3010; Q9967

== ENCOUNTER 2017-03-02 11:45 | Day surgery (SDC) | payer OTHER ==
[2017-03-02] MEDS ORDERED: fentaNYL 100 MCG/2 ML INJ IVP ONE (11:51)
[2017-03-02] MEDS ORDERED: NS 500 ML IV ONE (11:51)
[2017-03-02] MEDS ORDERED: MIDAZOLAM 2 MG/2 ML VIAL IVP ONE (11:51)
[2017-03-02] MEDS ORDERED: BENZOCAINE UNIT DOSE SPRAY HURRICAINE MM ONE (11:51)
--- NOTE | 2017-03-02 12:21 | PDANEPAE ---
ANE History of Present Illness here for CECILE ANE Past Medical History - Cardiovascular History Hx Hypertension: No Hx Arrhythmias: Yes Hx Chest Pain: No Hx Coronary Artery / Peripheral Vascular Disease: No Hx CHF / Valvular Disease: No Hx Palpitations: No Cardiovascular History Comment: ATRIAL FIB - CARDIOVERSION X 2 LAST 2010 NO EPISODES SINCE - Pulmonary History Hx COPD: No Hx Asthma/Reactive Airway Disease: Yes Hx Recent Upper Respiratory Infection: No Hx Oxygen in Use at Home: No Hx Sleep Apnea: No Pulmonary History Comment: EXERCISE INDUCED AND ENVIRONMENTAL. PNEUMONIA 04/2014 - Neurologic History Hx Cerebrovascular Accident: No Hx Seizures: No Hx Dementia: No - Endocrine History Hx Diabetes: No - Renal History Hx Renal Disorders: No - Liver History Hx Hepatic Disorders: No - Neurological & Psychiatric Hx Hx Neurological and Psychiatric Disorders: No - Cancer History Hx Cancer: No - Congenital Disorder History Hx Congenital Disorders: No - GI History Hx Gastrointestinal Disorders: No - Other Health History Other Health History: INSOMNIA. ALLERGIC RHINITIS - Chronic Pain History Chronic Pain: Yes (LT KNEE) - Surgical History Prior Surgeries: RT KNEE SCOPE 12/2014. L KNEE SCOPE. TONSILLECTOMY ANE Review of Systems Review of systems is: negative Review of Systems: - Exercise capacity Exercise capacity: >=4 METS ANE Patient History - Allergies Allergies/Adverse Reactions: No Known Allergies Allergy (Verified 10/16/16 05:35) - Home Medications Home Medications: Albuterol Sulfate [Proair Hfa] 1 - 2 puffs IH Q4-6PRN PRN 10/16/16 [Last Taken Unknown] Diltiazem Cd [Cardizem ER Q24hr] 180 mg PO DAILY 10/16/16 [Last Taken 03/01/17 08:00] Fluticasone/Salmeter 250/50Mcg [Advair 250/50 (*)] 1 puffs IH BID PRN 10/16/16 [ Last Taken 02/28/17 08:00] Montelukast Sodium [Singulair 10 mg (*)] 10 mg PO DAILY@1800 10/16/16 [Last Taken 03/01/17 21:00] Multivitamins [Multivitamin (*)] 1 each PO DAILY 10/16/16 [Last Taken 03/01/17 07:00] Triazolam [Halcion 0.25MG (*)] 0.25 mg PO HS PRN 10/16/16 [Last Taken 10/15/16] Apixaban [Eliquis] 5 mg PO BID 12/21/16 [Last Taken 03/02/17 08:00] Chlorthalidone [Chlorthalidone 25 mg (*)] 25 mg PO DAILY 12/21/16 [Last Taken 08:00] Irbesartan [Avapro] 300 mg PO DAILY 12/21/16 [Last Taken 03/01/17 08:00] - Smoking Hx Smoking Status: Former smoker - Family Anes Hx Family Hx Anesthesia Complications: NEG ANE Labs/Vital Signs - Vital Signs Height: 177.8 cm Weight: 90.718 kg ANE Physical Exam - Airway Neck exam: FROM Mallampati Score: Class 1 - Pulmonary Pulmonary: no respiratory distress - Cardiovascular Cardiovascular: regular rate and rhythym - ASA Status ASA Status: II ANE Anesthesia Plan Anesthesia Plan: GA with mask
[2017-03-02] MEDS ORDERED: PROPOFOL 200 MG/20 ML VIAL ONE (12:30)
--- NOTE | 2017-03-02 12:33 | PDGENHP ---
History & Physical Chief Complaint: Symptomatic AFIB History of Present Illness: CECILE previously showed NICK thrombus. Relevant Physical Exam: s1s2 rrr. cta. ao x 3 Cardiorespiratory Assessment: Symptomatic AFIB, has had 2 episodes since last evaluated. CECILE previously had shown NICK thrombus, have recc. lifelong OAC - pros/cons discussed. Plan CECILE today to assess thromus, if none, will plan switch to Pradaxa and perform AFIB ablation with therapeutic anticoagulation.
--- NOTE | 2017-03-07 13:02 | ECHO ---
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 Measurements: Chambers Valvular Assessment AV/MV Valvular Assessment TV/PV Normal Normal Normal Name Value Range Name Value Range Name Value Range Additional Measurements: Findings: Left Atrial Appendage: No thrombus in left appendage. Mitral Valve: Trivial mitral valve regurgitation. Aortic Valve: The aortic valve is tri-leaflet. Tricuspid Valve: Trivial tricuspid valve regurgitation. l1n Patient: RICHARD WANG Study Date: 03/02/2017 Page 1 of 2 12:22 PM (No Signature Object) Patient: RICHARD WANG Study Date: 03/02/2017 Page 2 of 2 12:22 PM [id number]
== END 2017-03-02 13:37 | disposition home or self-care (01) ==
LOC: FLAB 11:45 → FCP 13:37
PROVIDERS: ATTEND Internal Medicine Cardiovascular Disease
PROC: B244ZZ4 Ultrasonography of Right Heart, Transesophageal (ICD-10-PCS; principal; 2017-03-02)
DX: I48.0 Paroxysmal atrial fibrillation (principal); I49.3 Ventricular premature depolarization; Z87.891 Personal history of nicotine dependence
CPT/HCPCS: J2704

== ENCOUNTER 2018-02-23 19:34 | Emergency (ER) | payer OTHER ==
--- NOTE | 2018-02-23 20:14 | EDPHY ---
H & P Time Seen by Provider: 02/23/18 20:01 HPI/ROS: CHIEF COMPLAINT: Atrial fibrillation HISTORY OF PRESENT ILLNESS: The patient is a 57-year-old male with a history of atrial fibrillation on Eliquis. 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 Patient states he was placed on a monitor and noted to be in atrial fibrillation. He was subsequently roomed. Patient states he is feeling ongoing palpitations in his heart is"all over the place."Patient denies any shortness of breath. No chest pain. No nausea or vomiting. Patient is compliant with all his medications. These include diltiazem, irbesartan, chlorthalidone, and Eliquis. The patient has not used any stimulants. He denies alcohol. Patient does not smoke. Patient states in February of last year he was scheduled to have an ablation with Dr. Cobb. Prior to the procedure a CECILE was performed. It was noted that he had an atrial clot. The procedure was aborted. The patient was placed on Eliquis for 2 weeks. A repeat CECILE was performed. On this repeat evaluation the clot had resolved. The patient has not subsequently had an ablation REVIEW OF SYSTEMS: 10 systems were reveiwed and are negative with the exception of the elements mentioned in the history of present illness. Past Medical/Surgical History: Includes atrial fibrillation, reactive airway disease. The patient had previously been noted to have a thrombus in the atrial appendage on CECILE. Past surgical history: Includes knee surgery Social history: Patient does not smoke. 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 Smoking Status: Former smoker Physical Exam: 36.6, 149/100, 80, 18, 98% on room air Constitutional: Initial Vital Signs Temperature (C) 36.6 C 02/23/18 19:41 Heart Rate 88 02/23/18 19:41 Respiratory Rate 18 02/23/18 19:41 Blood Pressure 149/100 H 02/23/18 19:41 O2 Sat (%) 98 02/23/18 19:41 O2 Delivery Mode Room Air Allergies/Adverse Reactions: No Known Allergies Allergy (Verified 02/23/18 19:39) Home Medications: Medication Instructions Recorded Diltiazem Cd [Cardizem ER Q24hr] 180 mg PO DAILY 10/16/16 Montelukast Sodium [Singulair 10 10 mg PO DAILY@1800 10/16/16 mg (*)] Multivitamins [Multivitamin (*)] 1 each PO DAILY 10/16/16 Triazolam [Halcion 0.25MG (*)] 0.25 mg PO HS PRN 10/16/16 Apixaban [Eliquis] 5 mg PO BID 12/21/16 Chlorthalidone [Chlorthalidone 25 25 mg PO DAILY 12/21/16 mg (*)] Irbesartan [Avapro] 300 mg PO DAILY 12/21/16 Medical Decision Making ED Course/Re-evaluation: In the emergency department I discussed possible etiologies with the patient. I answered all his questions. An EKG was performed. Laboratory studies were ordered. EKG shows normal sinus rhythm, normal rate, normal axis, normal intervals. The patient had atrial premature complexes. There are no ST or T-wave abnormalities. Troponin was normal at 0.02. CBC shows mildly elevated white count at 13. Patient's chemistry panel notable for slightly low sodium 134. Patient's TSH is 2.2 Recheck patient numerous occasions while here. He had no new complaints. On the monitor he continued to be in sinus rhythm with multiple APCs. I discussed the findings with the patient. I answered all his questions. He will follow up with Cardiology tomorrow. He is given warnings prior to leaving. He will return with worsening symptoms. Differential Diagnosis: My differential includes but is not limited to atrial fibrillation, palpitations , ACS, acute IA, electrolyte abnormality, sugar abnormality, thyroid disease - Data Points Laboratory Results: Laboratory Results 02/23/18 19:50 02/23/18 19:50 02/23/18 02/23/18 02/23/18 19:57 19:50 19:50 WBC 13.54 10^3/uL H 10^3/uL (3.80-9.50) RBC 5.12 10^6/uL 10^6/uL (4.40-6.38) Hgb 15.7 g/dL g/dL (13.7-17.5) Hct 43.6 % % (40.0-51.0) MCV 85.2 fL fL (81.5-99.8) MCH 30.7 pg pg (27.9-34.1) MCHC 36.0 g/dL g/dL (32.4-36.7) RDW 12.6 % % (11.5-15.2) Plt Count 303 10^3/uL 10^3/uL (150-400) MPV 8.9 fL fL (8.7-11.7) Neut % (Auto) 71.2 % % (39.3-74.2) Lymph % (Auto) 22.6 % % (15.0-45.0) [place] % (Auto) 4.7 % % (4.5-13.0) Eos % (Auto) 0.6 % % (0.6-7.6) Baso % (Auto) 0.4 % % (0.3-1.7) Nucleat RBC Rel Count 0.0 % % (0.0-0.2) Absolute Neuts (auto) 9.63 10^3/uL H 10^3/uL (1.70-6.50) Absolute Lymphs (auto) 3.06 10^3/uL H 10^3/uL (1.00-3.00) Absolute Monos (auto) 0.64 10^3/uL 10^3/uL (0.30-0.80) Absolute Eos (auto) 0.08 10^3/uL 10^3/uL (0.03-0.40) Absolute Basos (auto) 0.06 10^3/uL 10^3/uL (0.02-0.10) Absolute Nucleated RBC 0.00 10^3/uL 10^3/uL (0-0.01) Immature Gran % 0.5 % % (0.0-1.1) Immature Gran # 0.07 10^3/uL 10^3/uL (0.00-0.10) Sodium 134 mEq/L L mEq/L (135-145) Potassium 3.5 mEq/L mEq/L (3.5-5.2) Chloride 99 mEq/L mEq/L (97-110) Carbon Dioxide 24 mEq/l mEq/l (22-31) Anion Gap 11 mEq/L mEq/L (6-14) BUN 19 mg/dL mg/dL (7-23) Creatinine 1.2 mg/dL mg/dL (0.7-1.3) Estimated GFR > 60 Glucose 102 mg/dL H mg/dL (70-100) Calcium 10.1 mg/dL mg/dL (8.5-10.4) POC Troponin I 0.02 ng/mL ng/mL (0.00-0.08) TSH 2.220 uIU/mL uIU/mL (0.465-4.680) Medications Given: Discontinued Medications Sodium Chloride (Ns) 500 mls @ 1,000 mls/hr IV EDNOW ONE PRN Reason: Protocol Stop: 02/23/18 20:44 Last Admin: 02/23/18 20:32 Dose: 500 mls Point of Care Test Results: Chemistry 02/23/18 19:57 POC Troponin I 0.02 ng/mL ng/mL (0.00-0.08) Departure - Departure Disposition: Home, Routine, Self-Care Clinical Impression: Atrial fibrillation Qualifiers: Atrial fibrillation type: paroxysmal Qualified Code(s): I48.0 - Paroxysmal atrial fibrillation Condition: Good Instructions: A-fib (Atrial Fibrillation) (ED) Additional Instructions: You need follow-up with Cardiology. Call tomorrow morning to make the next available appointment. Referrals: Roberto Gonzalez MD [Primary Care Provider] - 2-3 days without fail
[2018-02-23] MEDS ORDERED: NS 500 ML IV ONE (20:15)
[2018-02-23 20:22] LABS: PLATELET COUNT 303 10^3/uL (150-400)
--- NOTE | 2018-02-23 20:57 | CPEKG ---
Test Reason : OPEN Blood Pressure : / mmHG Vent. Rate : 089 BPM Atrial Rate : 091 BPM P-R Int : 152 ms QRS Dur : 072 ms QT Int : 336 ms P-R-T Axes : 059 -02 034 degrees QTc Int : 409 ms Sinus rhythm Atrial premature complexes Left atrial enlargement Confirmed by Fito Young ([id number]) on 02/23/2018 8:56:11 PM Referred By: Confirmed By:Fito Young
[2018-02-23 21:48] VITALS: BP 124/84
== END 2018-02-23 22:15 | disposition home or self-care (01) ==
DX: I48.0 Paroxysmal atrial fibrillation (principal); E86.9 Volume depletion, unspecified; Z79.01 Long term (current) use of anticoagulants; Z87.891 Personal history of nicotine dependence
CPT/HCPCS: 84484-ER

== ENCOUNTER 2018-06-07 11:04 | Emergency (ER) | payer OTHER ==
[2018-06-07 11:10] VITALS: BP 152/87
--- NOTE | 2018-06-07 12:54 | EDPHY ---
H & P Time Seen by Provider: 06/07/18 12:52 HPI/ROS: Chief complaint. Neck redness HPI. Left-sided neck redness for 2 days. Hurts and somewhat itches. No fever. No trauma other than shaving. No new skin products or cleansers. No trouble breathing or swallowing. No other rash. ROS 10 systems were reviewed and negative with the exception of the elements mentioned in the history of present illness Past Medical/Surgical History: Atrial fibrillation, reactive airway disease, knee surgeries Social History: Single, nonsmoker, no alcohol Smoking Status: Former smoker Physical Exam: General Appearance: Alert well-developed male mild distress vital signs are stable Eyes: Pupils equal and round no pallor or injection. ENT, pharynx without injection. No stridor. Swallowing secretions Respiratory: There are no retractions, lungs are clear to auscultation. Cardiovascular: Regular rate and rhythm. Gastrointestinal: Abdomen is soft and nontender, no masses, bowel sounds normal. Neurological: Awake and alert, sensory and motor exams grossly normal. Skin: Skin to the left side of the neck is erythematous. There is well demarcated junction between redness and normal skin. Slightly raised. Musculoskeletal: Neck is supple nontender. Extremities symmetrical, full range of motion. Psychiatric: Patient is oriented X 3, there is no agitation. Constitutional: Initial Vital Signs Temperature (C) 36.8 C 06/07/18 11:08 Heart Rate 76 06/07/18 11:08 Respiratory Rate 16 06/07/18 11:08 Blood Pressure 152/87 H 06/07/18 11:08 O2 Sat (%) 97 06/07/18 11:08 O2 Delivery Mode Room Air Allergies/Adverse Reactions: No Known Allergies Allergy (Verified 02/23/18 19:39) Home Medications: Medication Instructions Recorded Diltiazem Cd [Cardizem ER Q24hr] 180 mg PO DAILY 10/16/16 Montelukast Sodium [Singulair 10 10 mg PO DAILY@1800 10/16/16 mg (*)] Multivitamins [Multivitamin (*)] 1 each PO DAILY 10/16/16 Triazolam [Halcion 0.25MG (*)] 0.25 mg PO HS PRN 10/16/16 Apixaban [Eliquis] 5 mg PO BID 12/21/16 Chlorthalidone [Chlorthalidone 25 25 mg PO DAILY 12/21/16 mg (*)] Irbesartan [Avapro] 300 mg PO DAILY 12/21/16 Azithromycin [Zithromax] 250 mg PO DAILY #6 tab 06/07/18 Medical Decision Making ED Course/Re-evaluation: Patient remained stable on re-evaluation. He and I discussed treatment plan including criteria for return importance of follow-up and further evaluation. He expresses understanding and agreement Differential Diagnosis: I considered contact dermatitis. This appears to be erysipelas. No evidence of airway compromise. - Data Points Medications Given: Discontinued Medications Cephalexin HCl (Keflex) 500 mg PO EDNOW ONE PRN Reason: Protocol Stop: 06/07/18 13:08 Last Admin: 06/07/18 13:11 Dose: 500 mg Departure - Departure Disposition: Home, Routine, Self-Care Clinical Impression: Rash, Erysipelas Condition: Good Instructions: Cellulitis (ED) Additional Instructions: Begin Zithromax today using 2 pills today and then 1 pill each day for the next 4 days May use Benadryl or hydrocortisone cream for itching Recheck tomorrow Referrals: Leodan Johns MD [Primary Care Provider] - As per Instructions Prescriptions: Azithromycin [Zithromax] 250 mg PO DAILY #6 tab
[2018-06-07] MEDS ORDERED: CEPHALEXIN 500 MG CAP PO ONE (13:07)
== END 2018-06-07 13:15 | disposition home or self-care (01) ==
DX: R21 Rash and other nonspecific skin eruption (principal); A46 Erysipelas; J45.909 Unspecified asthma, uncomplicated; I48.91 Unspecified atrial fibrillation; Z87.891 Personal history of nicotine dependence